=== PATIENT | female | born 1965 | race Caucasian/White ===

== ENCOUNTER 2021-01-07 12:11 | Outpatient (REF) | payer BC, SELFPAY ==
[2021-01-09 13:13] LABS: COVID-19 RT-PCR UVMMC Result Positive (Negative)
== END 2021-01-07 12:12 | disposition home or self-care (01) ==
LOC: NCHCN 12:11
PROVIDERS: PCP Physician Assistant Medical; Visit Provider Nurse Practitioner Family
DX: Z20.822 Contact with and (suspected) exposure to COVID-19 (principal)
CPT/HCPCS: U0003

== ENCOUNTER 2021-01-10 08:53 | Outpatient (CLI) | payer BC, SELFPAY ==
[2021-01-10 09:51] VITALS: BP 158/98; PULSE 89; RESP 16; TEMP 37; O2SAT 99
[2021-01-10] MEDS: Normal Saline 500 ML 30 ML IV (10:40)
[2021-01-10 10:45] VITALS: BP 146/87; PULSE 104; RESP 16; TEMP 36.8; O2SAT 96
[2021-01-10 11:12] VITALS: BP 139/86; PULSE 105; RESP 16; TEMP 36.4; O2SAT 96
[2021-01-10 11:42] VITALS: BP 122/85; PULSE 107; RESP 16; TEMP 36.5; O2SAT 96
[2021-01-10 12:07] VITALS: BP 127/84; PULSE 103; RESP 16; TEMP 36.7; O2SAT 99
== END 2021-01-10 08:54 | disposition home or self-care (01) ==
PROVIDERS: PCP Physician Assistant Medical; Visit Provider Family Medicine
DX: U07.1 COVID-19 (principal)
CPT/HCPCS: 96365

== ENCOUNTER 2021-03-19 08:38 | Outpatient (REF) | payer BC, SELFPAY ==
[2021-03-19 20:34] LABS: ALT 40 U/L (16-63); AST 19 U/L (15-37); Albumin 4.2 g/dL (3.4-5.0); Alkaline Phosphatase 86 U/L (46-116); Anion Gap 8.5 mmol/L (3-11); BUN 11 mg/dL (7-18); Bilirubin, Total 0.8 mg/dL (0.2-1.0); CO2 28.5 mmol/L (21.0-32.0); CREATININE 0.8 mg/dL (0.70-1.30); Calcium 9.3 mg/dL (8.5-10.1); Calculated LDL 94 mg/dL (<100); Chloride 103 mmol/L (98-107); Cholesterol 210 mg/dL (<200); Glucose 99 mg/dL (74-106); HDL Cholesterol 110 mg/dL (40-60); Potassium 4.5 mmol/L (3.5-5.1); Sodium 140 mmol/L (136-145); Total Protein 7.2 g/dL (6.4-8.2); Triglyceride 32 mg/dL (<150)
[2021-03-20 18:41] LABS: PSA, Screening 1.3 ng/mL (0.0-3.5)
[2021-03-24 10:52] LABS: Testosterone, Free 11.7 ng/dL (3.87-14.7); Testosterone, Total 734 ng/dL (240-950)
== END 2021-03-19 08:39 | disposition home or self-care (01) ==
LOC: NCHCN 08:38
PROVIDERS: PCP Physician Assistant Medical; Visit Provider Physician Assistant
DX: N52.9 Male erectile dysfunction, unspecified (principal); Z68.36 Body mass index [BMI] 36.0-36.9, adult; Z12.5 Encounter for screening for malignant neoplasm of prostate
CPT/HCPCS: 80053; 80061; 84153; 84402; 84403

== ENCOUNTER 2022-04-17 13:25 | Outpatient (REF) | payer BC, SELFPAY ==
[2022-04-17 19:25] LABS: Abs Immature Grans 0.02 10^3/uL (0.0-0.06); Absolute Basophil Count 0.06 10^3/uL (0.0-0.2); Absolute Eosinophil Count 0.26 10^3/uL (0.0-0.7); Absolute Neutrophil Count 2.47 10^3/uL (1.2-6.7); Basophils % 1.4; HCT 40.4 % (40.0-50.0); HGB 12.9 g/dL (13.5-17.5); Immature Grans % 0.5; Lymphocytes % 25.5; MCH 30.7 pg (27.0-33.0); MCHC 31.9 % (32.0-36.0); MCV 96 fL (80-95); MPV 10.3 fL (8.0-11.0); Monocytes % 9.3; Neutrophils % 57.3; Platelet Count 242 10^3/uL (130-400); RDW 12.8 % (11.8-14.1); RDW-SD 45.8 fL; WBC 4.31 10^3/uL (4.4-10.8)
[2022-04-17 19:46] LABS: ALT 26 U/L (16-63); AST 20 U/L (15-37); Albumin 3.6 g/dL (3.4-5.0); Alkaline Phosphatase 88 U/L (46-116); Anion Gap 4.3 mmol/L (3-11); BUN 15 mg/dL (7-18); Bilirubin, Total 0.6 mg/dL (0.2-1.0); CO2 27.7 mmol/L (21.0-32.0); CREATININE 0.7 mg/dL (0.70-1.30); Calcium 8.9 mg/dL (8.5-10.1); Chloride 107 mmol/L (98-107); Glucose 88 mg/dL (74-106); Potassium 4.4 mmol/L (3.5-5.1); Sodium 139 mmol/L (136-145); Total Protein 6.7 g/dL (6.4-8.2)
== END 2022-04-17 13:26 | disposition home or self-care (01) ==
LOC: NCHCN 13:25
PROVIDERS: PCP Physician Assistant Medical; Visit Provider Physician Assistant
DX: I10 Essential (primary) hypertension (principal); I48.91 Unspecified atrial fibrillation; Z00.00 Encounter for general adult medical examination without abnormal findings
CPT/HCPCS: 80053; 85025

== ENCOUNTER 2022-07-03 15:18 | Outpatient (REF) | payer BC, SELFPAY ==
[2022-07-03 19:28] LABS: ALT 30 U/L (16-63); AST 18 U/L (15-37); Albumin 3.7 g/dL (3.4-5.0); Alkaline Phosphatase 94 U/L (46-116); Anion Gap 5.4 mmol/L (3-11); BUN 12 mg/dL (7-18); Bilirubin, Total 0.8 mg/dL (0.2-1.0); CO2 26.6 mmol/L (21.0-32.0); CREATININE 0.7 mg/dL (0.70-1.30); Calcium 9.1 mg/dL (8.5-10.1); Chloride 105 mmol/L (98-107); Estimated GFR 106.14 (mL/min/1.73m2); Glucose 93 mg/dL (74-106); NT-proBNP 159 pg/mL (<300); Potassium 4.5 mmol/L (3.5-5.1); Sodium 137 mmol/L (136-145); TSH 1.75 uIU/mL (0.36-3.74); Total Protein 6.7 g/dL (6.4-8.2)
== END 2022-07-03 15:19 | disposition home or self-care (01) ==
LOC: NCHCN 15:18
PROVIDERS: PCP Physician Assistant Medical; Visit Provider Physician Assistant
DX: R60.0 Localized edema (principal); I10 Essential (primary) hypertension
CPT/HCPCS: 80053; 83880; 84443

== ENCOUNTER 2022-08-12 19:47 | Outpatient (REF) | payer BC, SELFPAY ==
[2022-08-12 20:04] LABS: Anion Gap 4.7 mmol/L (3-11); BUN 16 mg/dL (7-18); CO2 27.3 mmol/L (21.0-32.0); CREATININE 0.8 mg/dL (0.70-1.30); Calcium 8.8 mg/dL (8.5-10.1); Chloride 106 mmol/L (98-107); Estimated GFR 101.95 (mL/min/1.73m2); Glucose 124 mg/dL (74-106); Potassium 4.4 mmol/L (3.5-5.1); Sodium 138 mmol/L (136-145)
== END 2022-08-12 19:48 | disposition home or self-care (01) ==
LOC: NCHCN 19:47
PROVIDERS: PCP Physician Assistant Medical; Visit Provider Physician Assistant
DX: I10 Essential (primary) hypertension (principal); R60.0 Localized edema
CPT/HCPCS: 80048

== ENCOUNTER 2023-06-21 13:11 | Outpatient (CLI) | payer BC, SELFPAY ==
--- NOTE | 2023-06-21 09:00 | DI.RAD_ITS ---
Exam(s) XR KNEE RT 2V AP,LAT XR STANDING ALIGNMENT EXAM: XR STANDING ALIGNMENT CLINICAL HISTORY: OA BILAT KNEES. TECHNIQUE: 2D digital imaging was performed. Standing AP views were performed from the pelvis throu gh the ankles. Three views of the right knee. COMPARISON: CR XR KNEE COMPLETE MIN 4V LT from 05/05/2023 CR XR KNEE RT 2V AP,LAT from 06/21/2023 FINDINGS: BONES: No acute fracture is present. No bony destructive lesion is seen. Leg length discrepancy: Left femoral head projects a few millimeters superior to the right. JOINTS: Knees: Severe degenerative changes of both knees. Prominent periarticular spurring throughout. Bila teral lateral subluxation of the tibia with respect to the distal femurs. The ankle joints are unremarkable. The hip joints show mild degenerative changes. SOFT TISSUE: Swelling and bilateral venous varicosities left greater than right. IMPRESSION: Severe degenerative changes of both knees.. Minimal overall leg length discrepancy. DATA REPOSITORY: RADIATION DOSE DELIVERED:
== END 2023-06-21 13:12 | disposition home or self-care (01) ==
LOC: DIORS 13:11
PROVIDERS: PCP Physician Assistant; Visit Provider Student in an Organized Health Care Education/Training Program
DX: M17.0 Bilateral primary osteoarthritis of knee (principal)
CPT/HCPCS: 73560; 77073

== ENCOUNTER 2023-07-12 05:37 | Outpatient (CLI) | payer BC, SELFPAY ==
[2023-07-12 10:45] LABS: HCT 42.3 % (40.0-50.0); MCH 31.3 pg (27.0-33.0); MCHC 33.1 % (32.0-36.0); MCV 95 fL (80-95); MPV 10.2 fL (8.0-11.0); Platelet Count 218 10^3/uL (130-400); RBC 4.47 10^6/uL (4.36-5.78); RDW 13.4 % (11.8-14.1); RDW-SD 46.9 fL; WBC 4.89 10^3/uL (4.4-10.8)
[2023-07-12 10:58] LABS: Anion Gap 6.3 mmol/L (3-11); BUN 11 mg/dL (7-18); CO2 27.7 mmol/L (21.0-32.0); CREATININE 0.7 mg/dL (0.70-1.30); Calcium 8.7 mg/dL (8.5-10.1); Chloride 106 mmol/L (98-107); Estimated GFR 105.49 (mL/min/1.73m2); Glucose 97 mg/dL (74-106); Potassium 4.5 mmol/L (3.5-5.1); Sodium 140 mmol/L (136-145)
== END 2023-07-12 05:38 | disposition home or self-care (01) ==
LOC: LBO 05:37
PROVIDERS: PCP Physician Assistant; Visit Provider Student in an Organized Health Care Education/Training Program
DX: M17.0 Bilateral primary osteoarthritis of knee (principal); Z01.818 Encounter for other preprocedural examination
CPT/HCPCS: 36415; 80048; 85027

== ENCOUNTER 2023-07-21 15:51 | Observation (INO) | payer BC, SELFPAY ==
[2023-07-21] VITALS (15 sets, daily range): BP systolic 98–138; BP diastolic 54–86; PULSE 47–58; RESP 12–18; TEMP 36.2–36.7; O2SAT 95–99; BMI 38.3
[2023-07-21] MEDS: Lactated Ringers 1,000 ML 80 ML IV ×2 (09:02→13:42)
[2023-07-21] MEDS: Celecoxib 200 MG CAP 400 MG PO (09:07)
[2023-07-21] MEDS: Acetaminophen 500 MG TAB 1000 MG PO ×2 (09:08→18:01)
[2023-07-21] MEDS: Gabapentin 300 MG CAP PO ×2 (09:08→19:39)
--- NOTE | 2023-07-21 09:09 | W.ANESPRE ---
General Info Date of Service Date Performed: 07/21/23 Height: 5 ft 11 in Weight: 124.8 kg Body Mass Index (BMI): 38.3 Surgical Procedure: Operation Date: 07/21/23 11:50 Proposed Procedure Side Surgeon p Knee Total Arthroplasty Bilateral, Cementless CR Bilateral Jimmy Phelps MD Meds Allergies and Home Medications Allergies Allergy/AdvReac Type Severity Reaction Status Date / Time No Known Allergies Allergy Verified 07/21/23 08:48 Home Medication Medication Instructions Recorded amlodipine 5 mg tablet 5 mg PO DAILY 05/19/23 apixaban 5 mg tablet (Eliquis) 5 mg PO BID 05/19/23 cyanocobalamin (vitamin B-12) 1,000 mcg PO DAILY 05/19/23 1,000 mcg capsule sotalol 160 mg tablet 160 mg PO BID 05/19/23 torsemide 20 mg tablet 20 mg PO DAILY 05/19/23 Current Visit Medications: Current Medications Generic Name Dose Route Start Last Admin Trade Name Freq PRN Reason Stop Dose Admin Acetaminophen 1,000 mg 07/21/23 06:00 07/21/23 09:08 Acetaminophen 500 Mg Tab PO 07/21/23 23:59 1,000 mg PREOP RIGO Administration Celecoxib 400 mg 07/21/23 06:00 07/21/23 09:07 Celecoxib 200 Mg Cap PO 07/21/23 23:59 400 mg PREOP RIGO Administration Gabapentin 300 mg 07/21/23 06:00 07/21/23 09:08 Gabapentin 300 Mg Cap PO 07/21/23 23:59 300 mg PREOP RIGO Administration Ringer's Solution 1,000 mls @ 80 mls/hr 07/21/23 06:00 07/21/23 09:02 IV 08/19/23 23:59 80 mls/hr INFUSION RIGO Administration Cefazolin Sodium/Dextrose 2 gm in 50 mls @ 100 mls/hr 07/21/23 06:00 Ancef Duplex IVPB 07/21/23 23:59 PREOP RIGO Tranexamic Acid/Sodium Chloride 1,000 mg in 100 mls @ 600 mls/hr 07/21/23 06:00 IVPB 07/21/23 23:59 PREOP RIGO Tranexamic Acid/Sodium Chloride 1,000 mg in 100 mls @ 600 mls/hr 07/21/23 06:00 IVPB 07/21/23 23:59 DIRECTED [facility] IV Miscellaneous Supplies 1 each 07/21/23 06:00 Iv Access IV 08/19/23 23:59 DIRECTED RIGO Sodium Chloride 0 ml 07/21/23 06:00 Normal Saline Flush 10 Ml Syr IV 08/19/23 23:59 PRN PRN Sodium Chloride 0 ml 07/21/23 06:00 Normal Saline 10 Ml Vial IJ 08/19/23 23:59 DIRECTED PRN Sterile Water 0 ml 07/21/23 06:00 Water,Injection,Sterile 10 Ml Vial IJ 08/19/23 23:59 DIRECTED PRN PFSH Active Problems Active Problems: Problem Status Onset Code Osteoarthritis of knees, bilateral M17.0 Medical History Medical History HTN (hypertension) A-fib History of cardioversion Surgical History Surgical History Hx of colonoscopy Hx of umbilical hernia repair Tobacco Smoking/Tobacco Use Status: Never Alcohol Alcohol Intake: current Alcohol intake frequency: a few times a week Alcohol type: beer Substance Use Substance use: Occasionally Substance use type: marijuana Vital Signs and Lab Results Vital Signs Most Recent Vital Signs in EMR: Most Recent Vital Signs Temp Pulse Resp BP Pulse Ox 36.5 C 50 L 16 138/86 98 07/21/23 08:52 07/21/23 08:52 07/21/23 08:52 07/21/23 08:52 07/21/23 08:52 Lab Results Blood Type / Crossmatch: No Data to Display Complete Blood Count: White Blood Count 4.89 10^3/uL (4.4-10.8) 07/12/23 09:56 Red Blood Count 4.47 10^6/uL (4.36-5.78) 07/12/23 09:56 Hemoglobin 14.0 g/dL (13.5-17.5) 07/12/23 09:56 Hematocrit 42.3 % (40.0-50.0) 07/12/23 09:56 Platelet Count 218 10^3/uL (130-400) 07/12/23 09:56 Complete Metabolic Panel: Sodium 140 mmol/L (136-145) 07/12/23 09:56 Potassium 4.5 mmol/L (3.5-5.1) 07/12/23 09:56 Chloride 106 mmol/L (98-107) 07/12/23 09:56 Carbon Dioxide 27.7 mmol/L (21.0-32.0) 07/12/23 09:56 BUN 11 mg/dL (7-18) 07/12/23 09:56 Creatinine 0.7 mg/dL (0.70-1.30) 07/12/23 09:56 Est GFR (CKD-EPI 2020) 105.49 (mL/min/1.73m2) 07/12/23 09:56 Calcium 8.7 mg/dL (8.5-10.1) 07/12/23 09:56 Glucose 97 mg/dL (74-106) 07/12/23 09:56 Liver Function Panel: No Data to Display Coagulation Panel: No Data to Display Cardiac Panel: No Data to Display Arterial Blood Gas: No Data to Display Venous Blood Gas: No Data to Display Pancreas Panel: No Data to Display Thyroid Panel: No Data to Display Infectious Disease: No Data to Display Blood Cultures: No Data to Display Toxicology Panel: No Data to Display Anesthesia Assessment and Plan Anesthesia History Personal History: No History of Anesthesia Complications Family History: No Family History of Anesthesia Complications Exercise Tolerance Exercise Tolerance: Metabolic Equivalents>4 Pertinent Negatives Pertinent Negatives: No Symptoms of GERD and No Major Pulmonary Symptoms or Complaints Cardiac & Pulmonary Exam Cardiac Exam: Normal S1/S2 Heart Sounds Pulmonary Exam: Clear Bilateral Breath Sounds Implantable Cardiac Device Does patient have a Pacemaker or an ICD?: No Airway Exam Known Difficult Airway: No Mallampati Class: 1 Mouth Opening: Normal (> 3cm) Thyromental Distance: Greater than 3 cm Facial Hair: Full [place] Neck Range of Motion: Full ROM Neck Circumference: Normal Teeth Condition: Normal Dentition ASA Classification ASA Score: ASA 3 Emergency Case?: No NPO Status NPO Status: NPO Clears >2 hours, Solids >8 hours Anesthesia Plan Resuscitation Status: Full Code Anesthesia Technique: Spinal Anesthesia Airway Planned: Natural Airway Pain Management: Surgeon and patient request nerve block Monitors Used: Standard Monitors Preoperative Comments:: Last dose anticoagulation Wednesday evening, >72/hours
[2023-07-21] MEDS: ceFAZolin 2 GM/50 ML BAG IVPB (10:40)
[2023-07-21] MEDS: TRANEXAMIC ACID/SOD. CHL. 1,000 MG/100 ML BAG 600 MG IVPB ×2 (10:50→12:48)
--- NOTE | 2023-07-21 11:25 | W.ANESNERVE ---
Nerve Block Single Injection Procedure Date and Time Date Performed: 07/21/23 Procedure Start: 09:39 Location Where Procedure Performed Procedure Location: Day Surgery Unit Reason Performed: Postoperative Analgesia Requesting Provider: Jimmy Phelps Timeout Performed Timeout Performed: Yes Monitoring Used ECG, Blood Pressure, SpO2 and See EMR for corresponding vital signs Sterility Sterility: Hand Hygiene, Surgical Cap, Surgical Mask, Sterile Gloves and Chlorhexidine Sedation Given During Procedure Sedation Given (Indicate Dose Given): Versed IV Dose:: 2mg Patient Mental Status Patient Mental Status: Sedate with meaningful communication Nerve Block 1st Nerve Block: Laterality: Bilateral Block Type: Adductor Canal Ultrasound Image Saved?: Yes Needle / Catheter Used: 100mm SonoPlex II Local Anesthetic Bolus (Indicate Dose Given): Lidocaine used for local infiltration of skin, Injected in 3-5ml increments after negative blood aspiration, Half of Total block solution given into each side and Bupivacaine 0.25% Dose:: 12mL to left side, 13mL to right side Additives (Indicate Dose Given): None Ultrasound: Sterile probe cover and gel used Nerve Stimulator: Not Used Paresthesia: None Procedure Tolerated: No Complications Procedure Outcome: Successful Procedure Comment: Regan Townsend CRNA present Performed By: Sanjuana Quiros
--- NOTE | 2023-07-21 14:54 | W.PM.OP ---
Date of service: 07/21/23 Time of Service: 11:00 Operative Note Operative Note PRE-OP DIAGNOSIS: Bilateral Knee Osteoarthritis POST-OP DIAGNOSIS: same (and hypertrophic, nodular synovitis) PROCEDURE: Bilateral Total Knee Replacement with Intraoperative Navigation SURGEON: Jimmy Phelps GRANULATOR: Brad Byrd ANESTHESIA TYPE: Spinal Refer to Anesthesia Record ESTIMATED BLOOD LOSS: 450 PATHOLOGY: none sent TOURNIQUET TIME: 0 COMPLICATIONS: None Patient was transported to: PACU Patient's condition: stable Implants: LEFT: 1. Depuy Attune Cementless Cruciate Retaining Femoral Component, Size 7 2. Depuy Attune Cementless Fixed Bearing Tibial Component, Size 7 3. Depuy Attune 7x8 CR/FB Poly 4. Depuy Attune Patellar Component, Size 35 RIGHT: 1. Depuy Attune Cementless Cruciate Retaining Femoral Component, Size 7 2. Depuy Attune Cementless Fixed Bearing Tibial Component, Size 7 3. Depuy Attune 7x10 CR/FB Poly 4. Depuy Attune Patellar Component, Size 38 Indications: I have seen Homar in clinic for symptoms of bilateral knee arthritis, confirmed with radiographic findings. Homar has exhausted nonoperative methods and was having significant limitations in daily function and desired better function and less pain. I discussed the technical details of a knee replacement. I explained the risks of the procedure to include, but not limited to, bleeding, infection, pain, stiffness, fracture, damage to nerves and vessels, damage to muscles and tendons, loosening, need for repeat procedure, blood clot and cardiopulmonary demise. Despite these risks, he elected to proceed. Findings: There was significant signs of arthritis throughout the knee with complete loss of cartilage throughout all 3 compartments and deformity throughout. Large osteophytes were also present. 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 Additionally, significant hypertrophic, nodular synovitis was seen throughout both knees. Procedure Description: Homar was greeted in the preoperative holding area where the correct side was identified and marked. The consent was reviewed with the patient and signed. The history and physical was updated. All questions were answered. Preoperative mediacations were administered: Acetaminophen 1000mg, Celebrex 400mg, and Gabapentin 300mg. An adductor canal block was then administered by the anesthesia team in the [facility]. Homar was taken back to the operating room. A spinal anesthestic was then administered. The patient was placed into the supine position on the operating room table. Posts were placed for positioning during the procedure. All bony prominences were well padded. Prophylactic antibiotics in the form of Cefazolin were administered. 1g of Tranxemic Acid was given intravenously within 30 minutes of incision. Both legs were then prepped with Chloraprep and draped in a standard fashion with impervious stockinette. A second prep with Chloraprep was performed prior to application of Iodine impregnated skin protection of the left side; the right was left covered by the impervious stockinette. A timeout to confirm correct identity, side and site, procedure, allergies, anesthesia, and medical concerns was performed. LET KNEE: With the knee in some flexion, a midline incision was made overlying the knee. Full thickness skin flaps were raised once the extensor mechanism was encountered. These were raised medially and laterally. Any bleeding was controlled with electrocautery. There is diffuse prepatellar bursitis and some fraying of the ventral surface of the patellar ligament. Once the extensor mechanism was fully exposed, a medial parapatellar arthrotomy was performed in a flexed position. All bleeding from the arthrotomy and the geniculate arteries was coagulated. A medial subperiosteal peel was performed with electrocautery to the midcoronal plane. Due to the significant varus deformity the entire medial tibial plateau was exposed. The fat pad was removed while keeping the patellar tendon protected. The anterior distal femur synovium was removed for later visualization. The ACL and PCL were resected and the anterior horn of the lateral meniscus was transected. The knee was then flexed with the patella everted. Large osteophytes from the tibia were removed. Large osteophytes from the femur were removed. There is notable deformity throughout. The patella also had a large ossicle within the patellar ligament and was in a slightly lateral position which made visualization challenging. Throughout the knee was also diffuse, nodular synovitis. This synovium was resected. A single starting pin was then placed 1cm anterior to the PCL insertion and the notch in the direction of the femoral head. The OrthoAlign device was applied over the pin. It was oriented to be in line with the epicondylar axis and the trochlear groove. It was then pinned into place. The navigation computer was then turned on and calibrated. The distal femur cut was set at 1 degrees varus and 3.5 degrees flexion. The distal femur cutting guide then was positioned for a 9mm cut. The distal femur was cut with an oscillating saw while protecting the soft tissues. The tibia was then addressed. The OrthoAlign device was placed over the tibial tubercle and medial tibia and secured into position. Once again, OrthoAlign was calibrated and then set for a 2 degree varus cut and 5.5 degrees of posterior slope. With this locked into position, the cut thickness stylus was used to assess cut thickness. The medial side, most involved side, was set for a 4mm cut. This was then held in position and pinned into place with 2 additional pins and a cross pin for stability. The medial and lateral collateral ligaments were protected and the cut was performed. With this completed, it was assessed and noted to be of appropriate dimensions. The guide and OrthoAlign was removed. A spacer block was inserted and the knee was brought into extension to ensure enough space was present. . The Orthoalign gap balancing device was then placed in extension. This was used to ensure that the ligaments were properly balanced with up to 2 to 3 mm laxity laterally compared medially. The extension gap was measured as 20mm. The knee was then brought into 90 degrees of flexion and the ligament telecommunication lines repairer was once again placed. Under the same amount of force the flexion gap was measured. The Attune specific jig was placed and the flexion gap was made to match the extension gap. The femur was then sized as a size 7. The 4-in-1 cutting guide was the placed. An asaf wing was used to confirm appropriate position of the anterior cut to avoid notching. This cutting guide was ensured to be flush on the cut surface and then pinned into place with headed pins. While protecting the soft tissues, quad tendon, and collateral ligaments, the anterior and posterior cuts were performed with a saw. The central two pins were removed and the posterior and anterior chamfers were cut next. The notch-cutting guide was placed. This was pinned to lateralize the femoral component as much as possible while keeping it flush on the cut surface. This was then pinned into position. A saw was used to make the notch cut. A rasp smoothed the cut surfaces. The medial and lateral menisci were removed. A trial femoral component was then inserted, impacted down to the cut surfaces, and the lug holes were drilled. A provisional trial tibial component was placed and the knee was brought through range of motion. The polyethylene was trialed until there was good flexion and extension with excellent stability to the medial and lateral collaterals. The patella was tracking without thumbs. A size 8mm polyethylene component provided the best range of motion and stability with less than 2mm gapping with medial and lateral stress and full extension without significant hyperextension. The tibial cut surface was fully exposed. The tibia was then sized as a 7. The tibia had been previously marked during trialing to correspond to the center of the tibial component to help with rotation. The trial was aligned to this brad, approximately rotated to the medial 1/3rd of the tibial tubercle. The trial was pinned into place. The tibia was prepared with a reamer and a keel punch and lug holes. The knee was then brought into extension and the patella was measured as 31mm. Using the patellar clamp and cut guide, this was resected to a flat surface with at least 13mm of thickness remaining. The size 35 patella fit the best. This was oriented and then clamped into position. The lugs were drilled. The trial components were removed. The final components were opened on the back table. The periosteal and capsular tissues, especially posteriorly, around the knee were then systematically injected with a periarticular cocktail consisting of 246mg of Ropivacaine, 0.5mg of Epinephrine, 0.08mg of Clonidine, and 30mg of Ketorolac, diluted to 100cc. On the back table, with the implants opened, the cement was mixed. One batch of high viscosity cement was prepared with vacuum assistance. After the cement was ready a small amount was placed on the cut surface of the patella and the patellar button was clamped into position and held. While the cement was hardening, the cementless knee components were placed. Starting with the tibial component, the tibia was subluxed anteriorly and the lug holes of the component were lined up. The tibia was then impacted with an impactor and mallet until the tibial component was in contact with the tibia. Then, the femoral component was inserted. The lug holes were aligned and the component was impacted into position. The final polyethylene component was inserted. The knee was irrigated with Surgiphor Betadine solution. This was allowed to sit in the knee for 3 minutes and then it was thoroughly irrigated out with saline. After the cement had finally cured, approximately 15min, the clamp was removed from the patella and the knee was taken through range of motion. The patella was quite contracted laterally. Release of tissues around the patella were utilized to help mobilize the lateral soft tissues and allow the patella to track without any assistance. The capsule was then reapproximated with a #2 FiberWire as well as no. 1 Vicryl at multiple locations. The capsule was finally closed with a No. 2 Stratafix, barbed suture. The second dosing of 1g TXA was started. Deep tissues were then reapproximated with 0 Vicryl and 2-0 Vicryl. The skin was closed with a running 3-0 Monocryl in a subcuticular fashion. Attention was then turned to the right knee. RIGHT KNEE: The stockinette for the right knee was then opened. The skin was prepped with ChloraPrep. Once dry, an Ioban, Betadine impregnated, dressing was then applied. With the knee in some flexion, a midline incision was made overlying the knee. Full thickness skin flaps were raised once the extensor mechanism was encountered. These were raised medially and laterally. Any bleeding was controlled with electrocautery. Like the left side there is notable prepatellar bursitis with fraying of tissues, significant bursal tissue, and fraying of the patellar ligament. Once the extensor mechanism was fully exposed, a medial parapatellar arthrotomy was performed in a flexed position. All bleeding from the arthrotomy and the geniculate arteries was coagulated. A medial subperiosteal peel was performed with electrocautery to the midcoronal plane. Once again, there is diffuse, nodular synovitis seen throughout the knee. A synovectomy was performed. Due to the significant varus deformity the entire medial tibial plateau was exposed. The fat pad was removed while keeping the patellar tendon protected. The anterior distal femur synovium was removed for later visualization. The ACL and PCL were resected and the anterior horn of the lateral meniscus was transected. The knee was then flexed with the patella everted. Large osteophytes from the tibia were removed. Large osteophytes from the femur were removed. A single starting pin was then placed 1cm anterior to the PCL insertion and the notch in the direction of the femoral head. The OrthoAlign device was applied over the pin. It was oriented to be in line with the epicondylar axis and the trochlear groove. It was then pinned into place. The navigation computer was then turned on and calibrated. The distal femur cut was set at 1 degrees varus and 3.5 degrees flexion. The distal femur cutting guide then was positioned for a 9mm cut. The distal femur was cut with an oscillating saw while protecting the soft tissues. The tibia was then addressed. The OrthoAlign device was placed over the tibial tubercle and medial tibia and secured into position. Once again, OrthoAlign was calibrated and then set for a 2 degree varus cut and 5.5 degrees of posterior slope. With this locked into position, the cut thickness stylus was used to assess cut thickness. The medial side, most involved side, was set for a 4mm cut. This was then held in position and pinned into place with 2 additional pins and a cross pin for stability. The medial and lateral collateral ligaments were protected and the cut was performed. With this completed, it was assessed and noted to be of appropriate dimensions. The guide and OrthoAlign was removed. A spacer block was inserted and the knee was brought into extension to ensure enough space was present. . The Orthoalign gap balancing device was then placed in extension. This was used to ensure that the ligaments were properly balanced with up to 2 to 3 mm laxity laterally compared medially. The extension gap was measured as 21mm. The knee was then brought into 90 degrees of flexion and the ligament telecommunication lines repairer was once again placed. Under the same amount of force the flexion gap was measured. The Attune specific jig was placed and the flexion gap was made to match the extension gap. The femur was then sized as a size 7. The 4-in-1 cutting guide was the placed. An asaf wing was used to confirm appropriate position of the anterior cut to avoid notching. This cutting guide was ensured to be flush on the cut surface and then pinned into place with headed pins. While protecting the soft tissues, quad tendon, and collateral ligaments, the anterior and posterior cuts were performed with a saw. The central two pins were removed and the posterior and anterior chamfers were cut next. The notch-cutting guide was placed. This was pinned to lateralize the femoral component as much as possible while keeping it flush on the cut surface. This was then pinned into position. A saw was used to make the notch cut. A rasp smoothed the cut surfaces. The medial and lateral menisci were removed. A trial femoral component was then inserted, impacted down to the cut surfaces, and the lug holes were drilled. A provisional trial tibial component was placed and the knee was brought through range of motion. The polyethylene was trialed until there was good flexion and extension with excellent stability to the medial and lateral collaterals. The patella was tracking without thumbs. A size 10mm polyethylene component provided the best range of motion and stability with less than 2mm gapping with medial and lateral stress and full extension without significant hyperextension. The tibial cut surface was fully exposed. The tibia was then sized as a 7. The tibia had been previously marked during trialing to correspond to the center of the tibial component to help with rotation. The trial was aligned to this brad, approximately rotated to the medial 1/3rd of the tibial tubercle. The trial was pinned into place. The tibia was prepared with a reamer and a keel punch and lug holes. The knee was then brought into extension and the patella was measured as 33mm. Using the patellar clamp and cut guide, this was resected to a flat surface with at least 13mm of thickness remaining. The size 38 patella fit the best. This was oriented and then clamped into position. The lugs were drilled. The trial components were removed. The final components were opened on the back table. The periosteal and capsular tissues, especially posteriorly, around the knee were then systematically injected with a periarticular cocktail consisting of 246mg of Ropivacaine, 0.5mg of Epinephrine, 0.08mg of Clonidine, and 30mg of Ketorolac, diluted to 100cc. On the back table, with the implants opened, the cement was mixed. One batch of high viscosity cement was prepared with vacuum assistance. After the cement was ready a small amount was placed on the cut surface of the patella and the patellar button was clamped into position and held. While the cement was hardening, the cementless knee components were placed. Starting with the tibial component, the tibia was subluxed anteriorly and the lug holes of the component were lined up. The tibia was then impacted with an impactor and mallet until the tibial component was in contact with the tibia. Then, the femoral component was inserted. The lug holes were aligned and the component was impacted into position. The final polyethylene component was inserted. The knee was irrigated with Surgiphor Betadine solution. This was allowed to sit in the knee for 3 minutes and then it was thoroughly irrigated out with saline. After the cement had finally cured, approximately 15min, the clamp was removed from the patella and the knee was taken through range of motion. Similarly to the left side the patella had a contracted lateral position. Interval releases both intra-articular and extra-articular was performed allowing the patella to relax laterally. The capsule was then reapproximated with a #2 FiberWire and no. 1 Vicryl at multiple locations. The capsule was finally closed with a No. 2 Stratafix, barbed suture. Deep tissues were then reapproximated with 0 Vicryl and 2-0 Vicryl. The skin was closed with a running 3-0 Monocryl in a subcuticular fashion. This was reinforced with skin glue. A Mepilex silver dressing was applied along with a [id number] MELINA wrap. A CryoCuff was applied. Homar was transferred to the hospital bed without difficulty an suffering no apparent complication. Homar has a good prognosis. Physical therapy will start today and without restrictions, weight-bearing as tolerated. Apixaban 5mg will be used for DVT prophylaxis.
--- NOTE | 2023-07-21 16:06 | W.ANESPOSTOP ---
Postoperative Evaluation Date, Time and Location Date Performed: 07/21/23 Time Performed: 16:06 Patient Location: Med/Surg (207) Vital Signs Most Recent Imported Vital Signs: Most Recent Vital Signs Temp Pulse Resp BP Pulse Ox 36.7 C 47 L 14 102/65 97 07/21/23 16:00 07/21/23 16:00 07/21/23 16:00 07/21/23 16:00 07/21/23 16:00 Pain Score Most Recent Pain Score: Most Recent Pain Score Pain Level 1 07/21/23 15:33 Assessment Mental Status: Awake (Alert & Oriented to Patient Baseline) Airway and Respiratory Function: Patent airway with normal (patient baseline) respiratory exam Cardiovascular Function: Hemodynamically Stable Hydration Status: Adequately Hydrated Nausea & Vomiting: No Nausea or Vomiting Pain: Pain is tolerable per patient Peripheral Nerve Block: Regional nerve block not resolved at time of post operative discharge
--- NOTE | 2023-07-21 16:31 | IN_ITS ---
PT Notes Visit Reasons: B/L TKR Physical Therapy Inpatient Initial Evaluation Date: 07/21/2023 Referring Doctor: ARTHUR Jones PT Orders: PT CONSULT:S/P Ortho Surgery Precautions: Fall. Standard. Activity as tolerated. Patient Profile/Admitting Diagnosis: Cali is a 58-year-old male patient with degenerative joint disease of bilateral knees and status post bilateral total knee arthroplasties on postoperative day 0. PMHX: All Active Problems (Updated 05/19/23 @ 12:15 by ARTHUR Myers) Osteoarthritis of knees, bilateral (Acute) Social History/Home Situation: Lives with . Has 2 steps to enter with rails. 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 Has had increasing difficulty with all ADLs prior to srugery. Equipment Owned/DME: None Subjective: 3-4/10 at rest, 5-6/10 in B knees with movement and weight bearing. Denied headache, chest pain, and lightheadedness throughout session. Objective: General Observation: Resting in bed. MELINA wraps to B LE. Cryocuff to B knees. IV through L UE. present in room throughout session. Mental Status: Alert and oriented as to person, place, time, and purpose. Able to pay attention, focus, and respond appropriately. Pain: As above Vital Signs: BP a little soft at 102/77 mmHg at rest but no report of symptoms, verbalized taling BP med this morning before surgery ROM: Right Lower Extremity: Hip flexion WFL. Hip abduction WFL. Knee flexion 10 degrees to 100 degrees ACTIVELY at edge of bed. Knee extension -10 degrees ACTIVELY while at edge of bed. Ankle dorsiflexion WFL. Ankle plantarflexion WFL. Left Lower Extremity: Hip flexion WFL. Hip abduction WFL. Knee flexion 20 degrees to 100 degrees ACTIVELY at edge of bed. Knee extension -20 degrees ACTIVELY while at edge of bed. Ankle dorsiflexion WFL. Ankle plantarflexion WFL. Strength: Right Lower Extremity: Hip flexors 4-/5. Hip abductors 4-/5. Knee flexors 3-/5. Knee extensors 3-/5. Ankle dorsiflexors 4/5. Ankle plantarflexors 4/5. Left Lower Extremity: Hip flexors 4-/5. Hip abductors 4-/5. Knee flexors 3-/5. Knee extensors 3-/5. Ankle dorsiflexors 4/5. Ankle plantarflexors 4/5. Bed Mobility/Transfers: Minimal cueing provided for use of B hands as needed for support, movement sequence, AD management, and posture to reduce fall risk and minimize pain report Supine to sit standby assist with HOB at 30 degrees Sit to stand contact-guard assist using FWW Stand to sit contact-guard assist using FWW Bed to reclining chair contact-guard assist using FWW Gait: Facilitated safe and correct performance of in room ambulation of 10 steps using bariatric front wheel walker with step to gait pattern requiring contact-guard assist and minimal verbal cueing for correct gait pattern, limb advancement, weight distribution, AD management, and posture to reduce fall risk and minimize pain report. Stairs: Not tested at time of evaluation Balance: Static Sitting: Normal Dynamic Sitting: Good Static Standing: Fair Dynamic Standing: Fair Special Tests: Mobility Limitations Standardized Measure [facility] AM-PAC 6 clicks Basic Mobility Inpatient Short Form: Raw Score: 15 CMS Score: 58% deficit Informed Consent/Education: Patient was instructed in purpose of PT consult and plan of care. Agreeable to proceed with established PT POC to achieve personal goals. Trained patient with correct performance of exercises below to maximize motor control, joint flexibility, soft tissue extensibility of the B knee musculature: Access Code: [email or web address] URL: [email or web address] Date: 07/21/2023 Prepared by: Brooke Joya Exercises - Supine Quad Set - 1 x daily - 7 x weekly - 1 sets - 10 reps - 5 hold - Supine Heel Slide - 1 x daily - 7 x weekly - 1 sets - 10 reps - 5 hold - Supine Ankle Pumps - 1 x daily - 7 x weekly - 1 sets - 10 reps - 5 hold - Small Range Straight Leg Raise - 1 x daily - 7 x weekly - 1 sets - 10 reps - 5 hold - Seated March - 1 x daily - 7 x weekly - 1 sets - 10 reps - 5 hold ASSESSMENT: Patient requires the use of a front-wheeled walker and assistance of 1 caregiver for mobility ADL performance to maximize independence and reduce fall risk. Good quadriceps activation on B sides. Pain more on left knee down right. Patient presents with clinical signs and symptoms consistent with current/admitting diagnoses that have resulted to mobility limitations, gait instability, generalized weakness, and overall ADL decline as demonstrated by the following impairment level findings: 1. Decreased strength to b HIP and knee major muscle groups 2. Impaired sitting/standing balance 3. Impaired activity tolerance 4. Limitation of joint range of motion in B knees Impairments are contributing to the following functional limitations: 1. Decline in bed mobility skills 2. Decline in transfer skills 3. Difficulty with ambulation without assistive device and physical assistance 4. Increased completion time for mobility ADL performance 5. Increased risk for falls 6. Difficulty with managing steps alone safely Patient is assessed as a 74754 moderate complexity based on the following: History: 58-year-old male with past medical history as indicated above Examination: Demonstrable impairment in strength, balance, and mobility level with underlying impairments and functional limitations as exhibited above as well as deficit score of 58% utilizing the [facility] Mobility Inpatient Short Form Presentation: Evolving Decision Makin moderate complexity Goals: Goals X1 week 1. Supine-Sit independent 2. Sit-Supine independent 3. Sit-Stand independent 4. Stand-Sit independent with bariatric FWW 5. Bed-Chair independent with bariatric FWW 6. Chair-Bed independent with bariatric FWW 7. Independent gait on level surface with use of bariatric FWW for at least 300 feet without report of pain nor dyspnea 8. Independent stair negotiation while holding onto B rails for at least 3 steps without report of pain nor dyspnea 9. Independent with home exercise program 10. Good static and dynamic standing balance/tolerance Plan of Care/Treatment Plan: 1-2x/day, 7 days/week x 1 week. Plan of care has been reviewed with the POLICY SERVICE COORDINATOR providing the service under Physical Therapy direction. Initiate Physical Therapy intervention for pain management as needed, strengthening, bed mobility, transfers, gait, stairs, balance training, and use of assistive device. DISCHARGE RECOMMENDATIONS: [] Home with no services [] [] Home with services [specify] [X] Home with outpatient PT. home when medically cleared by orthopedic surgeon. Recommend outpatient PT services in order to optimize functional mobility outcomes and facilitate return to independent community ambulation without an assistive device. [] SNF for continued rehabilitation [] [] [facility] [] [] SNF versus LTC based on ability to participate and progress [] TREATMENT CODE/TIME: 03098 x 20 minutes for 1 unit, 92917 x 18 minutes for 1 unit (16:31-17:09). Thank you for the opportunity to participate in the care of this patient. Brooke Joya PT, DPT, CLT [facility] [place], [place]
[2023-07-21] MEDS: ceFAZolin 1 GM/50 ML BAG IVPB (18:00)
[2023-07-21] MEDS: oxyCODONE 5 MG TAB PO (19:38)
[2023-07-21] MEDS: Celecoxib 200 MG CAP PO (19:39)
[2023-07-22] MEDS: Acetaminophen 500 MG TAB 1000 MG PO ×2 (01:46→10:25)
[2023-07-22] MEDS: ceFAZolin 1 GM/50 ML BAG IVPB ×2 (01:46→08:50)
[2023-07-22] MEDS: oxyCODONE 5 MG TAB PO ×3 (03:48→15:19)
[2023-07-22 04:37] VITALS: BP 105/55; PULSE 58; RESP 16; TEMP 36.4; O2SAT 96
[2023-07-22] MEDS: Torsemide 20 MG TAB PO (08:50)
[2023-07-22] MEDS: Pantoprazole 40 MG TABCR PO (08:50)
[2023-07-22] MEDS: Celecoxib 200 MG CAP PO (08:50)
[2023-07-22] MEDS: Tamsulosin 0.4 MG CAPCR PO (08:50)
[2023-07-22] MEDS: Apixaban 5 MG TAB PO (08:50)
[2023-07-22] MEDS: Dexamethasone 4 MG TAB PO (08:50)
[2023-07-22 09:45] VITALS: BP 116/72; PULSE 58; RESP 16; TEMP 37.2; O2SAT 99
--- NOTE | 2023-07-22 10:16 | PDOC.CMDIS ---
Date of service: 07/22/23 Time of Service: 10:16 LACE Index Scoring Tool Questions: Length of Stay (in days): 1 Was the patient admitted via the E.D.?: No E.D. Visits: 0 Answers: Total Score: 1 Risk of Readmission: Low Risk Care Management Discharge Plan Reason for Hospitalization: Bilateral Total Knee Revision Discharge Plan: Cali is discharged home via private vehicle with family. Pt will follow up with community providers and his discharge plan of care as instructed. Appointment to follow up with Ortho is scheduled for 08/05/23. No new services are ordered prior to discharge. Patient/Family Education Needs: Review discharge instructions, limitations, medications and plan to follow up with community providers. Discuss ask me three. [place] Health Related Social Needs: No Data to Display
--- NOTE | 2023-07-22 11:48 | PTTR_ITS ---
PT Notes Visit Reasons: B/L TKR Date: 07/22/23 PRECAUTIONS: Fall. Standard. Activity as tolerated. SUBJECTIVE: Pt reports 5/10 for pain on bilateral knee in supine, pt reports the pain is very manageable, agreed to participating with session. OBJECTIVE: ? SCD/Cryo cuff bilateral LE? PAIN: 5/10 in supine, goes up to 8/10 during sit to stand , 5/10 standing VITALS: Telemetry in place ? Therapeutic Activities 77318: Direct one-on-one instruction in dynamic activities to improve functional performance. ?? BED MOBILITY/TRANSFERS? Rolling L/R: SBA Supine-sit: ?SBA ? Sit-supine: ? SBA? Sit-stand: ? ?CGA ? Stand-sit: ?? CGA? Bed-Chair:? ?CGA ? Chair-bed: CGA Provided skilled cues and instruction on performance and technique throughout. Gait Training 51040: Direct one-on-one instruction and skilled instruction in: Employing an assistive device Modified weight-bearing status Movement sequencing Turning and movement with proper form Provided verbal cues for equipment management and technique Provided instruction in gait pattern Patient education regarding pacing and breathing techniques to maximize activity tolerance? GAIT? Assistive Device: ??FWW ? Weight bearing: WBAT Assist: ? CGA? Distance:??80' WC follow for seated rest break on fatigue ? Deviation: ? ? antalgic? STAIRS:? ? 6steps 2x3 up and down bilateral handrail, 1x3 with 1UE support and 1handrail ? Therapeutic Exercises 52693: Direct one-on-one instruction in therapeutic exercises to develop strength, endurance, range of motion and flexibility. Exercises Access Code: [email or web address] URL: [email or web address] Date: 07/22/2023 Prepared by: Paxton Joya Exercises - Gluteal Sets - 1 x daily - 7 x weekly - 1 sets - 10 reps - 5 hold - Supine Heel Slide - 1 x daily - 7 x weekly - 1 sets - 10 reps - 5 hold - Supine Ankle Pumps - 1 x daily - 7 x weekly - 1 sets - 10 reps - 5 hold - Seated March - 1 x daily - 7 x weekly - 1 sets - 10 reps - 5 hold - Seated Long Arc Quad - 1 x daily - 7 x weekly - 1 sets - 10 reps - 5 hold ASSESSMENT:?Pt tolerated activity well, no report of pain aggravation during activity, pt approached twice first for therapeutic procedure with PT education for HEP and secand for gait training with FWW and stair negotiation training after pt has taken his pain meds, pt returned to bed and was setup for cryocuff and SCD attachment' PLAN: Continue with balance training, global strengthening and general conditioning for improved safety, mobility and activity tolerance until pt is ready for DC. TREATMENT CODE/TIME: 50953d8, 17195p6, 52024i0 43mins (8:30-8:48, 10:30-12:55am)
[2023-07-22 13:07] LABS: Anion Gap 5.6 mmol/L (3-11); BUN 20 mg/dL (7-18); CO2 28.4 mmol/L (21.0-32.0); CREATININE 1.1 mg/dL (0.70-1.30); Calcium 8.1 mg/dL (8.5-10.1); Chloride 104 mmol/L (98-107); Estimated GFR 76.85 (mL/min/1.73m2); Glucose 125 mg/dL (74-106); Potassium 4.6 mmol/L (3.5-5.1); Sodium 138 mmol/L (136-145)
--- NOTE | 2023-07-22 13:53 | DSE_ITS ---
Date of service: 07/22/23 Time of Service: 13:53 DS: Diagnosis Discharge Diagnosis (1) Osteoarthritis of knees, bilateral: Status: Acute Discharge Plan Disposition Condition: Good Discharge Details Reason For Visit: B/L TKR Admit Date/Time: 07/21/23 15:51 Admit Provider: Jimmy Phelps Attending Provider: Jimmy Phelps Primary Care Provider: Nava Jimenez Hospital Course Hospital Course: Patient was admitted to the medical/surgical floor following the procedure. The surgery was tolerated well without any notable medical, surgical, or anesthetic complications. Mobilization began postoperatively. He was voiding spontaneously although initially had some difficulties with complete bladder emptying requiring two straight cath., Eventually he was able to void and have no postvoid residual. Vitals were stable. Physical therapy worked with the patient and was cleared for discharge home. No acute medical issues. Pain was controlled on oral regimen. Home Meds and New Rx's Prescriptions: New acetaminophen 500 mg tablet 1,000 mg PO Q8H PRN (Reason: pain) Qty: 90 3RF gabapentin 300 mg capsule 300 mg PO QHS Qty: 14 0RF pantoprazole 40 mg tablet,delayed release (DR/EC) 40 mg PO DAILY Qty: 30 0RF oxycodone 5 mg tablet 5 mg PO Q4H PRNQty: 20 0RF tamsulosin 0.4 mg capsule 0.4 mg PO DAILY Qty: 14 0RF dexamethasone 4 mg tablet 4 mg PO DAILY Qty: 1 0RF Rx Instructions: Starting Post-Operative Day #1 (Day after surgery) Continued Eliquis 5 mg tablet 5 mg PO BID sotalol 160 mg tablet 160 mg PO BID amlodipine 5 mg tablet 5 mg PO DAILY torsemide 20 mg tablet 20 mg PO DAILY cyanocobalamin (vitamin B-12) 1,000 mcg capsule 1,000 mcg PO DAILY Discharge Instructions Additional Instructions: Total Knee Discharge Instructions Activity: The most important activity is to walk and to work on gentle motion (both flexion and extension). You should try to take short walks a few times a day. It is important that when resting you work on keeping the knee straight. Avoid putting a pillow behind the knee as this will encourage flexion. Work on range of motion exercises as provided by Physical Therapy. - Start outpatient physical therapy within 2 weeks. - You should wear the JHONATAN hose on both legs for 2 weeks. You may remove these at night. You may also use any compression sock in place of the JHONATAN hose. - Utilize [employer] to review exercises, see videos on exercises and obtain basic information pertaining to your surgery and your recovery. Dressing: Remove the Juan wrap by 2 days after your surgery and put on the JHONATAN stocking given to you from the hospital. Keep the surgical dressing (underneath the JUAN wrap) in place for at least one week. After the first week it may be removed and replaced with light gauze and tape or nothing. The wound and dressing may get wet after 3 days but avoid soaking the dressing or otherwise it will need to be changed. Many people prefer covering the dressing with cling wrap (saran wrap) to minimize it from getting soaked. If it gets wet, just pat dry. If it starts to peel off then it will need to be changed. Medications: - You should take Tylenol and anti-inflammatory Celebrex as your primary pain control medications. If the Celebrex is too expensive or not covered, please call the office for another alternative (Advil/Ibuprofen or Naproxen/Aleve) - You have been prescribed a stronger pain medication Oxycodone for breakthrough pain, take as needed as prescribed. - You have also been prescribed a stomach acid reduction agent Pantoprozole to help reduce stomach acid and reflux. - You have been prescribed Gabapentin to take at night for restlessness and nerve pain. - You will be taking your apixaban for DVT prevention unless instructed otherwise. - You have also been prescribed Decadron to take to control post-operative nausea and pain. You will take this tomorrow. - If you have constipation you should take Colace or Miralax (both [id number]). It takes most people 3-4 days to have a bowel movement. Follow-up: 2 weeks If you have any acute concerns or questions, please do not hesitate to contact the office at [phone]. You may contact Dr. Phelps with any questions after hours through the hospital at [phone] or on his cell phone at [phone]. Equipment/Supplies: Walker Activity:: Activity as Tolerated Shower/Bathe:: 72 hours Diet:: As Tolerated DS: Summary Time Spent with Patient providing and/or coordinating discharge services: Less than 30 minutes Status at Discharge Functional status at discharge: uses cane/walker Overall status at discharge: patient is progressing back to baseline Mental Status: mental status grossly normal Speech and Movement: speech and movement normal Mood: congruent mood Affect: normal affect Quality:SDOH Health Related Social Needs: No Data to Display Exam Narrative Exam Narrative: Sitting up in the hospital bed. No acute distress. Dressings are clean dry and intact. He is able to demonstrate active knee extension bilaterally. He has active ankle dorsiflexion, plantarflexion, great toe extension, great toe flexi on bilaterally. Sensation intact light touch over the deep and superficial peroneal nerve and tibial nerve bilaterally. Psych Mental Status: mental status grossly normal Speech and Movement: speech and movement normal Mood: congruent mood Affect: normal affect DS: Data Vitals/I&O Vitals and I&O: Vital Signs Temperature 97.7 F 07/21/23 08:52 Temperature Source Temporal Artery Scan 07/21/23 08:47 Pulse 50 L 07/21/23 08:52 Pulse Rhythm Regular 07/21/23 08:52 Respiratory Rate 16 07/21/23 08:52 Respiratory Depth Normal 07/21/23 08:52 Blood Pressure 138/86 07/21/23 08:52 Blood Pressure Mean 103 07/21/23 08:47 Blood Pressure Position Sitting 07/21/23 08:47 Pulse Oximetry 98 07/21/23 08:52 Oxygen Delivery Method Room Air 07/21/23 08:52 Oxygen Flow Rate 0 07/21/23 08:52 Pain Level 8 07/21/23 08:52 Intake & Output 07/20/23 07/21/23 07/21/23 18:59 06:59 18:59 Weight 275 lb 2.19 oz PFSH All Active Problems Osteoarthritis of knees, bilateral (Acute) Medical History HTN (hypertension) A-fib History of cardioversion Surgical History Hx of colonoscopy Hx of umbilical hernia repair Social History Smoking/Tobacco Use Status: Never Smoking risk assessment performed?: Yes Alcohol Intake: current Alcohol Intake frequency: a few times a week Alcohol type: beer Drug use: Occasionally Substance use type: marijuana Housing: house Do you feel safe at home: Yes Do you feel safe in your relationship?: Yes
[2023-07-22 14:54] VITALS: BP 136/72; PULSE 72; RESP 17; TEMP 37.6; O2SAT 96
== END 2023-07-22 15:27 | disposition home or self-care (01) ==
LOC: MS 15:53
PROVIDERS: Admitting Provider Student in an Organized Health Care Education/Training Program; PCP Physician Assistant; Visit Provider Student in an Organized Health Care Education/Training Program
PROC: 0SRC0JZ Replacement of Right Knee Joint with Synthetic Substitute, Open Approach (ICD-10-PCS; CPT 27447; principal; 2023-07-21 11:30)
DX: M17.0 Bilateral primary osteoarthritis of knee (principal); I10 Essential (primary) hypertension; I48.91 Unspecified atrial fibrillation; Z79.01 Long term (current) use of anticoagulants; R33.9 Retention of urine, unspecified; M65.862 Other synovitis and tenosynovitis, left lower leg; M65.861 Other synovitis and tenosynovitis, right lower leg
CPT/HCPCS: 27447; 20985; 76942; 80048; 96365; 96366; 97110; 97116; 97162; 97530; C1776; G0378; J0665; J0690; J1596; J2001; J2371; J2405; J2704; J8540

== ENCOUNTER 2023-08-05 15:50 | Outpatient (CLI) | payer BC, SELFPAY ==
--- NOTE | 2023-08-05 14:12 | DI.RAD_ITS ---
Exam(s) XR KNEE LT 1V XR KNEE RT 1V XR STANDING ALIGNMENT EXAM: XR STANDING ALIGNMENT CLINICAL HISTORY: 1ST POST OP S/P BILAT TKA. TECHNIQUE: 2D digital imaging was performed. Standing AP views were performed from the pelvis throu gh the ankles. COMPARISON: CR XR KNEE COMPLETE MIN 4V LT from 05/05/2023 CR XR STANDING ALIGNMENT from 06/21/2023 CR XR KNEE RT 2V AP,LAT from 06/21/2023 CR XR KNEE RT 1V from 08/05/2023 CR XR KNEE LT 1V from 08/05/2023 FINDINGS: BONES: No acute fracture is present. No bony destructive lesion is seen. Leg length discrepancy: No significant overall leg length discrepancy. JOINTS: Knees: Bilateral total knee prostheses have been placed since the prior exam. The alignment appears satisfactory. The ankle joints are unremarkable. The hip joints show mild bilateral acetabular spurring.. SOFT TISSUE: Bilateral venous varicosities. Bilateral anterior soft tissue swelling. IMPRESSION: Bilateral total knee prostheses. No significant leg length discrepancy. DATA REPOSITORY: RADIATION DOSE DELIVERED:
== END 2023-08-05 15:51 | disposition home or self-care (01) ==
LOC: DIORS 15:50
PROVIDERS: PCP Physician Assistant; Visit Provider Student in an Organized Health Care Education/Training Program
DX: Z96.653 Presence of artificial knee joint, bilateral (principal); Z47.1 Aftercare following joint replacement surgery
CPT/HCPCS: 73560; 77073

== ENCOUNTER 2024-04-28 21:04 | Outpatient (REF) | payer BC, SELFPAY ==
[2024-04-28 20:09] LABS: Abs Immature Grans 0.01 10^3/uL (0.0-0.06); Absolute Basophil Count 0.06 10^3/uL (0.0-0.2); Absolute Eosinophil Count 0.24 10^3/uL (0.0-0.7); Absolute Lymphocyte Count 1.08 10^3/uL (1.2-3.4); Absolute Monocyte Count 0.33 10^3/uL (0.1-0.8); Absolute Neutrophil Count 3.68 10^3/uL (1.2-6.7); Basophils % 1.1 %; Eosinophils % 4.4 %; HCT 42.8 % (40.0-50.0); HGB 13.7 g/dL (13.5-17.5); Immature Grans % 0.2 %; MCV 97 fL (80-95); MPV 10.4 fL (8.0-11.0); Monocytes % 6.1 %; Neutrophils % 68.2 %; Platelet Count 237 10^3/uL (130-400); RBC 4.42 10^6/uL (4.36-5.78); RDW-SD 46.8 fL
[2024-04-28 20:18] LABS: ALT 26 U/L (16-63); AST 22 U/L (15-37); Albumin 3.7 g/dL (3.4-5.0); Alkaline Phosphatase 96 U/L (46-116); Anion Gap 7.4 mmol/L (3-11); BUN 10 mg/dL (7-18); Bilirubin, Total 0.58 mg/dL (0.2-1.0); CO2 28.6 mmol/L (21.0-32.0); CREATININE 0.8 mg/dL (0.70-1.30); Calcium 8.9 mg/dL (8.5-10.1); Chloride 104 mmol/L (98-107); Estimated GFR 101.32 (mL/min/1.73m2); Glucose 103 mg/dL (74-106); LDL CHOLESTEROL 87 mg/dL (<100); Potassium 4.5 mmol/L (3.5-5.1); Sodium 140 mmol/L (136-145); Total Protein 7.1 g/dL (6.4-8.2)
[2024-05-01 10:51] LABS: Hepatitis C Ab w Rflx HCV PCR Negative (Negative)
[2024-05-01 10:57] LABS: HIV-1/2 Ag & Ab Screen Negative (Negative)
== END 2024-04-28 21:05 | disposition home or self-care (01) ==
LOC: NCHCN 21:04
PROVIDERS: PCP Physician Assistant; Visit Provider Physician Assistant
DX: I10 Essential (primary) hypertension (principal); Z11.59 Encounter for screening for other viral diseases; Z11.4 Encounter for screening for human immunodeficiency virus [HIV]; Z12.5 Encounter for screening for malignant neoplasm of prostate
CPT/HCPCS: 80053; 83721; 84153; 86803; 87389; 85025

== ENCOUNTER 2024-07-24 08:38 | Outpatient (CLI) | payer BC, SELFPAY ==
--- NOTE | 2024-07-24 08:15 | DI.RAD_ITS ---
Exam(s) XR KNEE RT 2V AP,LAT EXAM: XR KNEE RT 2V AP,LAT CLINICAL HISTORY: ANNUAL F/U BILAT TKAS. TECHNIQUE: 2D digital imaging was performed. Two images were obtained. AP and lateral views were ob tained. COMPARISON: CR XR KNEE RT 2V AP,LAT from 06/21/2023 CR XR KNEE RT 1V from 08/05/2023 CR XR STANDING ALIGNMENT from 08/05/2023 FINDINGS: BONES: There are stable post operative changes of a right total knee arthroplasty present. No fractu re or dislocation. JOINTS: The orthopedic hardware is in good position. No evidence of hardware loosening. SOFT TISSUE: Normal. IMPRESSION: Stable right total knee arthroplasty. DATA REPOSITORY: RADIATION DOSE DELIVERED:
--- NOTE | 2024-07-24 08:15 | DI.RAD_ITS ---
Exam(s) XR KNEE LT 2V AP,LAT EXAM: XR KNEE LT 2V AP,LAT CLINICAL HISTORY: ANNUAL F/U BILAT TKAS. TECHNIQUE: 2D digital imaging was performed. Three images were obtained. AP and lateral views were obtained. COMPARISON: CR XR STANDING ALIGNMENT from 08/05/2023 CR XR KNEE LT 1V from 08/05/2023 FINDINGS: BONES: There are stable post operative changes of a left total knee arthroplasty present. Since the prior examination, there has been a nondisplaced fracture involving the superior pole of the patella. Dystrophic calcifications are again seen adjacent to the anterior aspect of the tibia on the latera l view. JOINTS: The orthopedic hardware is in good position. No evidence of hardware loosening. SOFT TISSUE: Dilated vessels are again seen in the soft tissues likely reflecting varices. IMPRESSION: 1. Stable left total knee arthroplasty. 2. Since the prior examination there is a nondisplaced fracture involving the superior pole of the pa tella. DATA REPOSITORY: RADIATION DOSE DELIVERED:
== END 2024-07-24 08:39 | disposition home or self-care (01) ==
LOC: DIORS 08:38
PROVIDERS: PCP Physician Assistant; Referring Provider Physician Assistant; Visit Provider Student in an Organized Health Care Education/Training Program
DX: Z96.653 Presence of artificial knee joint, bilateral (principal); Z47.1 Aftercare following joint replacement surgery
CPT/HCPCS: 99213; 73560